=== PATIENT | male | born 1995 | race Caucasian/White ===

== ENCOUNTER 2020-04-03 23:23 | Emergency (ER) | payer OTHER ==
[~2020-04-03] VITALS: Ht 182.9 cm; Wt 80.0 kg
[2020-04-03 23:45] VITALS: BP 135/93
[2020-04-04] MEDS ORDERED: TETRACAINE 0.5% OPHTH SOLUTION 4ML BOTTLE. OS ONE
[2020-04-04] MEDS ORDERED: FLUORESCEIN 1MG EYE STRIP. OS ONE
--- NOTE | 2020-04-04 00:05 | PHYS DOC ---
Past History Past Medical History: No Pertinent History Alcohol Use: Occasionally General Adult EDM: Chief Complaint: EYE PROBLEMS HPI: HPI: 25-year-old male who denies any past medical history presents the ED with complaints of sudden onset left eye pain just prior to arrival patient was putting down linoleum sahara, believes a piece of dirt got in his left eye. Does not wear contact lenses or glasses. States he rubbed his eye copiously afterwards, feels as if foreign body is gone but is having severe left eye pain, tearing and photophobia. Was not working with any metal or UV lights. Review of Systems: Review of Systems: Constitutional: Denies fever or chills Eyes: Denies vision loss or eye drainage HENT: Denies nasal congestion or sore throat Respiratory: Denies cough or shortness of breath Cardiovascular: Denies chest pain or edema GI: Denies abdominal pain, nausea, vomiting, bloody stools or diarrhea : Denies dysuria or hematuria Musculoskeletal: Denies back pain or joint pain Integument: Denies rash or crepitus Neurologic: Denies headache, focal weakness or sensory changes Endocrine: Denies polyuria or polydipsia Lymphatic: Denies swollen glands Psychiatric: Denies depression or anxiety Current Medications: Current Meds: Current Medications Medications (Trade) Dose Ordered Sig/Juli Start Time Stop Time Status Last Admin Dose Admin Fluorescein Sodium (Ful-Latonya 1mg) 1 strip 1X ONCE 04/04/20 00:00 04/04/20 00:01 Tetracaine HCl (Tetracaine) 1 drop 1X ONCE 04/04/20 00:00 04/04/20 00:01 Allergies: Allergies: Allergies Coded Allergies Type Severity Reaction Last Updated Verified No Known Drug Allergies 04/03/20 No Physical Exam: PE: Constitutional: Well developed, well nourished, uncomfortable with squinting left eye HENT: Normocephalic, atraumatic, Eyes: PERRLA, EOMI, left conjunctiva normal, visual acuity per RNs documentation, left upper eyelid flipped, no foreign body visualized, analgesia successful with tetracaine, large corneal abrasion over medial aspect of left cornea approximately 30 to 40% in size, very minimal conjunctival injection, no ciliary flush, no Lei sign, normal right eye exam with no pain Neck: Normal range of motion, supple, Cardiovascular: S1/2 present, regular rhythm Lungs & Thorax: Speaking in full sentences, bilateral equal chest rise, no tachypnea or increased work of breathing Abdomen: soft, no tenderness, Skin: Warm, dry, no erythema, no rash. [] Extremities: No tenderness, no cyanosis, no edema Neurologic: Alert and oriented X 3, normal motor function, normal sensory function, no focal deficits noted. [] Psychologic: Affect normal, judgement normal, mood normal. [] Current Patient Data: Vital Signs: Vital Signs Date Time Temp Pulse Resp B/P (MAP) Pulse Ox O2 Delivery O2 Flow Rate FiO2 04/03/20 23:45 98.2 108 18 135/93 (107) 98 Room Air EKG: EKG: [] Radiology/Procedures: Radiology/Procedures: [] Heart Score: Risk Factors: Risk Factors: DM, Current or recent (<one month) smoker, HTN, HLP, family history of CAD, obesity. Risk Scores: Score 0 - 3: 2.5% MACE over next 6 weeks - Discharge Home Score 4 - 6: 20.3% MACE over next 6 weeks - Admit for Clinical Observation Score 7 - 10: 72.7% MACE over next 6 weeks - Early Invasive Strategies Course & Med Decision Making: Course & Med Decision Making Pertinent Labs and Imaging studies reviewed. (See chart for details) Concern for left corneal abrasion with no Lei sign, no vision loss. No foreign body on physical exam. Will discharge home with topical antibiotics, strict ED return precautions were given for vision loss, severe worsening pain, epiphora, red eye or fever. Encouraged urgent outpatient follow-up with PMD and ophthalmology in 48 hours. Life-threatening processes were considered but are low suspicion at this time, given history, physical exam and ED workup. Pt was educated on all prescription medications and adverse effects. All patient's questions were answered and pt was stable at time of discharge. Life/limb-threatening differential includes but is not limited to, acute angle- closure glaucoma, uveitis, corneal abrasion, CRVO/CRAO, PRES, retinal detachment, vitreous hemorrhage, temporal arteritis, optic neuritis, high- altitude retinopathy foreign body, globe rupture, episcleritis, corneal ulcer, traumatic iritis, hyphema or empyema, orbital cellulitis, orbital hematoma, lens dislocation or orbital wall fracture. I spoken with the patient and her caregivers. I explained the patient's condition, diagnoses and treatment plan based on the information available to me at this time. I have answered the patient and her caregiver's questions and addressed any concerns. The patient and her caregivers have a good understanding of patient's diagnosis, condition and treatment plan as can be expected at this point. Vital signs have been stable. Patient's condition is stable and appropriate for discharge from the emergency department. Patient will pursue further outpatient evaluation with primary care physician or other designated or consulting physician as outlined in the discharge instructions. The patient and/or caregivers are agreeable to this plan of care and follow-up instructions have been explained in detail. The patient and/or caregivers have received these instructions in written form and have expressed an understanding of the discharge instructions. The patient and/or caregivers are aware that any significant change of condition or worsening of symptoms should prompt immediate return to this or the closest emergency department or call to [phone] Disclaimer: [place] Disclaimer: This electronic medical record was generated, in whole or in part, using a voice recognition dictation system. Departure Departure: Impression: Primary Impression: Left corneal abrasion Disposition: 01 DC HOME SELF CARE/HOMELESS Condition: STABLE Referrals: PCP,NO (PCP) FOLLOW UP WITH FAMILY MEDICINE: [facility], [facility] [address] [place] [id number] [address] Instructions: Eye - Corneal Abrasion, Eye - Foreign Body Additional Instructions: FOLLOW UP WITH OPTHALMOLOGY in [address], [facility] [address] [place] [address] EMERGENCY DEPARTMENT GENERAL DISCHARGE INSTRUCTIONS Thank you for coming to [facility] (ED) today and trusting us with you care. We trust that you had a positivie experience in our Emergency Department. If you wish to speak to the department management, you may call the director at [phone]. YOUR FOLLOW UP INSTRUCTIONS ARE FOLLOWS: 1. Do you have a private Doctor? If you do not have a private doctor, please ask for a resource list of physicians or clinics that may be able to assist you with follow up care. 2. The Emergency Physician has interpreted your x-rays. The X-Ray specialist will also review them. If there is a change in the findings, you will be notified in 48 hours when at all possible. 3. A lab test or culture has been done, your results will be reviewed and you will be notified if you need a change in treatment. ADDITIONAL INSTRUCTIONS AND INFORMATION: 1. Your care today has been supervised by a physician who is specially trained in emergency care. Many problems require more than one evaluation for a complete diagnosis and treatment. We recommend that you schedule your follow up appointment as recommended to ensure complete treatment of you illness or injury. If you are unable to obtain follow up care and continue to have a problem, or if your condition worsens, we recommend that you return to the ED. 2. We are not able to safely determine your condition over the phone nor are we able to give sound medical advice over the phone. For these safety reasons, if you call for medical advice we will ask you to come to the ED for further evaluation. 3. If you have any questions regarding these discharge instructions please call the ED at [phone]. SAFETY INFORMATION: In the interest of safety, wellness, and injury prevention; we encourage you to wear your sealbelt, if you smoke; quite smoking, and we encourage family to use a protective helmet for bicycling and other sporting events that present an increased risk for head injury. IF YOUR SYMPTOMS WORSEN OR NEW SYMPTOMS DEVELOP, OR YOU HAVE CONCERNS ABOUT YOUR CONDITION; OR IF YOUR CONDITION WORSENS WHILE YOU ARE WAITING FOR YOUR FOLLOW UP APPOINTMENT; EITHER CONTACT YOUR PRIMARY CARE DOCTOR, THE PHYSICIAN WHOSE NAME AND NUMBER YOU WERE GIVEN, OR RETURN TO THE ED IMMEDIATELY. Scripts Erythromycin Base (Erythromycin) 1 Gm Oint...g. 1 CM OP QID for left eye corneal abrasion for 5 Days, #1 TUBE 0 Refills ~1 cm ribbon into affected eye qid for 3-5 days Prov: NICKO MEJIA DO 04/04/20 NICKO MEJIA DO Apr 04, 2020 00:05
[2020-04-04] MEDS ORDERED: ERYT1OIN6 OP (00:50)
== END 2020-04-04 01:07 | disposition home or self-care (01) ==
LOC: ER 23:23
DX: S05.02XA Injury of conjunctiva and corneal abrasion without foreign body, left eye, initial encounter (principal); X58.XXXA Exposure to other specified factors, initial encounter; Y93.89 Activity, other specified; Y92.89 Other specified places as the place of occurrence of the external cause; Y99.8 Other external cause status
CPT/HCPCS: 99283